=== PATIENT | female | born 1935 | race Caucasian/White ===

== ENCOUNTER 2016-06-03 05:58 | Inpatient (IN) | payer OTHER ==
[2016-05-30 10:10] LABS: HEMATOCRIT 36.3 % (36.0-48.0); HEMOGLOBIN 12.3 g/dL (12.0-16.0)
[2016-05-30 10:22] LABS: CALCIUM, SERUM 9.1 MG/DL (8.5-10.4); CHLORIDE, SERUM 106 MMOL/L (96-112); CO2 (CARBON DIOXIDE) 30 MMOL/L (24-34); CREATININE 0.74 MG/DL (0.55-1.02); GFR AFRICAN AMERICAN 89 ML/MIN (>=60); GFR NON AFRICAN AMERICAN 77 ML/MIN (>=60); GLUCOSE, SERUM 104 MG/DL (60-99); POTASSIUM, SERUM 4.1 MMOL/L (3.5-5.3); SODIUM, SERUM 143 MMOL/L (135-148)
[2016-05-30 10:23] LABS: BUN (BLOOD UREA NITROGEN) 20 MG/DL (6-23)
--- NOTE | ~2016-06-03 | OP ---
Record Of Operation [facility] [address] [place]. [address] NAME: BRENDA ARREDONDO : 37 STATUS : ADM IN PAT#: [id number] AGE: 81 ADM/REG DATE : 06/03/16 MR#: [id number] REPORT SERV DATE: 06/03/16 DICTATED BY: KELLY FREEDMAN DATE: 06/03/16 REPORT STATUS : Draft TRANSCRIBED BY: MODL DATE: 06/03/16 DATE OF PROCEDURE: 06/03/2016 PREOPERATIVE DIAGNOSIS: Recurrent rectal prolapse, status post Altemeier procedure. POSTOPERATIVE DIAGNOSIS: Recurrent rectal prolapse, status post Altemeier procedure. SURGEON: Kelly Freedman MD TANK BUILDER: Yogesh. PROCEDURE: Robotic-assisted anterior mesh rectopexy. ESTIMATED BLOOD LOSS: 10 mL. IV FLUIDS: 750 mL of crystalloid. COMPLICATIONS: None. SPECIMENS: None. FINDINGS: The patient had an extremely deep cul-de-sac consistent with her prior surgery. rectovaginal septum only a small amount and was probably within a centimeter of the skin based on palpation from below. PROCEDURE IN DETAIL: Preoperatively, the patient was definitively identified in the holding area. It was confirmed that a signed consent was on the chart. The patient was then transferred to the operating room and placed supine on the operating room table. After appropriate surgical pause, general endotracheal anesthesia and perioperative antibiotics were all administered by anesthesia team. She also had received subcutaneous heparin and principles were followed for this case. After placement of a Valdovinos catheter, the patient was prepped and draped in low lithotomy position. After infusion of a small amount of lidocaine, an 8 mm incision above and to the right of the umbilicus was performed. A Veress needle was used to insufflate the abdomen to 15 mmHg pressure after hanging drop test confirmed correct placement. The 8 mm robotic trocar was then placed robotic camera. The abdomen was completely inspected. It was confirmed there was no intraabdominal injury. Of note, she had extensive diverticulosis through the entire sigmoid colon, even including some down near the pelvic floor. The patient was placed in steep Trendelenburg position and four additional trocars were placed, an 8 mm robotic trocar in the right lower quadrant, a 12 mm exceptional children teacher assistant port in the right lateral abdomen, two 8 mm robotic trocars in the left lateral abdomen. The patient then placed right side down. The robot was docked in standard fashion. I began my dissection by entering the areolar plane in the presacral fashion. I cleared off the sacral promontory. Of note, the middle sacral vein was clearly in evidence. The right ureter was identified and I was clearly below the iliacs. I scored the visceroperitoneum down the Record Of Operation [facility] [address] [place]. [address] NAME: BRENDA ARREDONDO : 37 STATUS : ADM IN PAT#: [id number] AGE: 81 ADM/REG DATE : 06/03/16 MR#: [id number] REPORT SERV DATE: 06/03/16 DICTATED BY: KELLY FREEDMAN DATE: 06/03/16 REPORT STATUS : Draft TRANSCRIBED BY: MODKathrine DATE: 06/03/16 right side to the cul-de-sac. I created enough space by raising flaps of perineum for the mesh. I then dissected down the rectovaginal septum after removing her pessary. After dissecting only a fairly small amount, I went below and palpated the robotic instruments while observing them directly and essentially, I was only about a centimeter from her skin. Therefore, I completed the dissection at this point. We used a Gynecare lightweight Prolene mesh. Due to the length of her pelvis which we had measured with a suture, we had determined into two 3.5 cm strips and sew these end-to-end to create a long about 25 cm strip. This was done with 2-0 Prolene. This was then inserted into the abdomen and brought down all the way down to the pelvic floor. It was secured in place with 5 interrupted sutures. Two of them were V-Loc suture, but I decided Ethibond would be a better option and so 2-0 Ethibond was used for the other three interrupted sutures. These were sewn to the anterior aspect of her neorectum. Caution was used to ensure no full-thickness sutures were taken. We verified the rectum and it was completely reduced. I then sewed the appropriate length of mesh to the sacral promontory with two interrupted 2-0 Ethibond sutures. I tested them and they were through the periosteum. I sewed the mesh in place very nicely. We then closed the peritoneum over the mesh with a running V-Loc suture. Hemostasis was verified. The V-Loc sutures trimmed, and all needles and additional suture removed from the abdomen. No mesh was visible at the conclusion of the procedure. All the trocars were removed and the abdomen was desufflated as much as possible after undocking the robot. The patient was returned to the flat position and the fascia of the 12-mm trocar site was closed with a [id number] 2-0 Vicryl suture on a UR-6 needle. The skin of all the incisions were then closed with 4-0 Monocryl followed by two layers of Dermabond. At the time of this dictation, the patient remains intubated. We anticipate extubation and transfer to postanesthesia care unit in stable condition. ECN/MODL Kelly Freedman MD / [id number] CC: Kelly Freedman MD
[~2016-06-03 05:58] MED LIST: ACET500CAP PO; ADVIL PO; ASA5GR PO; ASAB PO; ATEN25 PO; BEN25 PO; CALCIUM MAG ZINC; CIMETIDINE400 MG PO; FISH-EPA1000 MG PO; KDUR20 PO; MAGNEBIND300 MG PO; MIRALAXPKT PO; NIFEDIAC CC60 MG PO; NORCO1 TA1 PO; OXYCONTIN PO; PRAVAC PO; PRILOSEC40 MG PO
[2016-06-03 12:15] LABS: HEMATOCRIT 33.2 % (36.0-48.0); HEMOGLOBIN 11.1 g/dL (12.0-16.0)
[2016-06-04 07:18] LABS: BASOPHILS 0.3 %; BASOPHILS ABSOLUTE 0.03 10/3/uL (0.0-0.16); EOSINOPHILS 0.8 %; EOSINOPHILS ABSOLUTE 0.07 10/3/uL (0.0-0.53); HEMOGLOBIN 11.2 g/dL (12.0-16.0); IMMATURE GRANULOCYTES 0.1 %; IMMATURE GRANULOCYTES ABSOLUTE 0.01 10/3/uL (0.0-0.11); LYMPHOCYTES 20.6 %; LYMPHOCYTES ABSOLUTE 1.77 10/3/uL (0.67-4.30); MEAN CORPUS HGB CONC 33.9 g/dL (32.0-36.0); MEAN CORPUSCULAR HEMOGLOB 32.6 pg (26.0-34.0); MEAN CORPUSCULAR VOLUME 95.9 fL (80-100); MEAN PLATELET VOLUME 10.6 fL (9.2-13.0); MONOCYTES 7.5 %; MONOCYTES ABSOLUTE 0.65 10/3/uL (0.21-1.20); NEUTROPHILS 70.7 %; NEUTROPHILS ABSOLUTE 6.08 10/3/uL (2.02-8.40); PLATELET COUNT 304 10/3/uL (150-400); RBC DISTRIBUTION WIDTH 13.9 % (12.0-16.0); RED CELL COUNT 3.44 10/6/uL (4.0-5.6)
[2016-06-04 07:24] LABS: MANUAL DIFF NO %; WHITE BLOOD CELLS 8.6 10/3/uL (4.5-10.5)
[2016-06-04 07:41] LABS: CALCIUM, SERUM 9.1 MG/DL (8.5-10.4); CHLORIDE, SERUM 105 MMOL/L (96-112); CO2 (CARBON DIOXIDE) 28 MMOL/L (24-34); CREATININE 0.95 MG/DL (0.55-1.02); GFR AFRICAN AMERICAN 66 ML/MIN (>=60); GFR NON AFRICAN AMERICAN 57 ML/MIN (>=60); GLUCOSE, SERUM 113 MG/DL (60-99); POTASSIUM, SERUM 4.1 MMOL/L (3.5-5.3); SODIUM, SERUM 140 MMOL/L (135-148)
[2016-06-04 07:42] LABS: BUN (BLOOD UREA NITROGEN) 14 MG/DL (6-23)
[2016-06-04] MEDS ORDERED: MIRALAX POWDER1 PKT PO (13:10)
[2016-06-04] MEDS ORDERED: PCET PO (13:11)
== END 2016-06-04 14:16 | disposition home or self-care (01) | DRG 331 ==
LOC: SDC/OF 05:58 → PACU 11:54 → 5SO 14:12
PROVIDERS: Internal Medicine; Surgery
PROC: 0DQP4ZZ Repair Rectum, Percutaneous Endoscopic Approach (ICD-10-PCS; principal; 2016-06-03 07:00)
DX: K62.3 Rectal prolapse (principal); J44.9 Chronic obstructive pulmonary disease, unspecified; E78.5 Hyperlipidemia, unspecified; K21.9 Gastro-esophageal reflux disease without esophagitis; Z96.652 Presence of left artificial knee joint; F17.210 Nicotine dependence, cigarettes, uncomplicated
CPT/HCPCS: 80048; 85014; 85018; 85025; 93005; 97161-GP; A9270-GY; C1781; J0690; J2405; J2710; J2795; J3010; P9045